=== PATIENT | female | born 1970 | race Two or more races ===

== ENCOUNTER 2018-07-29 06:00 | Day surgery (SDC) | payer OTHER | END 2018-07-29 10:00 | disposition home or self-care (01) | LOC: AMB-ENDOS 06:00 | DX: K64.1 Second degree hemorrhoids (principal); Z12.11 Encounter for screening for malignant neoplasm of colon ==

== ENCOUNTER 2022-12-10 09:05 | Outpatient (CLI) | payer OTHER | END 2022-12-10 09:35 | disposition home or self-care (01) | LOC: SONOGRAMA 09:05 | PROVIDERS: ATTEND Obstetrics & Gynecology Gynecology | DX: N84.0 Polyp of corpus uteri (principal); D25.2 Subserosal leiomyoma of uterus; N81.6 Rectocele; N39.41 Urge incontinence; N81.11 Cystocele, midline; M89.9 Disorder of bone, unspecified; E66.9 Obesity, unspecified; R92.1 Mammographic calcification found on diagnostic imaging of breast; N60.11 Diffuse cystic mastopathy of right breast; N60.12 Diffuse cystic mastopathy of left breast ==

== ENCOUNTER 2022-12-30 06:51 | Day surgery (SDC) | payer OTHER | END 2022-12-30 11:15 | disposition home or self-care (01) | LOC: EDBD → AMB-ENDOS 06:51 | PROVIDERS: ATTEND Colon & Rectal Surgery | DX: K29.50 Unspecified chronic gastritis without bleeding (principal); K44.9 Diaphragmatic hernia without obstruction or gangrene; R19.5 Other fecal abnormalities; K64.0 First degree hemorrhoids; R19.4 Change in bowel habit ==

== ENCOUNTER 2023-10-07 08:03 | Outpatient (CLI) | payer OTHER | END 2023-10-07 08:04 | disposition home or self-care (01) | LOC: NUCLEAR 08:03 | DX: R22.43 Localized swelling, mass and lump, lower limb, bilateral (principal) ==

== ENCOUNTER 2023-10-21 22:42 | Emergency (ER) | payer OTHER ==
[~2023-10-21] VITALS: Ht 170.2 cm; Wt 95.3 kg
[2023-10-21] MEDS ORDERED: KETOROLAC TROMETHAMINE 60 MG VIAL IM ONE ×2 (23:30)
[2023-10-21] MEDS ORDERED: ORPHENADRINE CITRATE 30 MG/ML AMPUL IM ONE (23:30)
[2023-10-21] MEDS ORDERED: ORPHENADRINE CITRATE 30 MG/ML AMPUL ONE (23:30)
[2023-10-21] MEDS ORDERED: KETO10TA2 PO (23:59)
== END 2023-10-22 01:50 | disposition home or self-care (01) ==
LOC: ER 22:44
DX: M25.569 Pain in unspecified knee (principal)